=== PATIENT | female | born 1970 | race Caucasian/White ===

== ENCOUNTER 2016-10-21 07:46 | Emergency (ER) | payer OTHER ==
[~2016-10-21] VITALS: Ht 160 cm; Wt 122.0 kg
[2016-10-21] MEDS ORDERED: IBUP-1022 PO (08:05)
[2016-10-21] MEDS ORDERED: NORCO, ANEXSIA 5/325MG TABLET (HYDROcodone/ACETAMINOPHEN) PO ONE (08:45)
--- NOTE | 2016-10-21 09:33 | REP ---
Clinical: Trauma. Technique: AP, lateral, bilateral oblique and sunrise views right knee . Findings: The osseous structures and joint spaces are intact and normal. There is no evidence for acute fracture or dislocation. No joint effusion is appreciated. Surrounding soft tissues are unremarkable. No subcutaneous emphysema or radiodense foreign body. Impression: No acute fracture or dislocation. Signed by Pito Angulo MD 10/21/2016 09:25 A
[2016-10-21] MEDS ORDERED: MOBI4TAB PO (09:37)
[2016-10-21] MEDS ORDERED: NORCOTAB PO (09:37)
[2016-10-21 10:02] VITALS: BP 138/78
== END 2016-10-21 10:03 | disposition home or self-care (01) ==
LOC: M ED 07:46
DX: M25.561 Pain in right knee (principal); Z88.8 Allergy status to other drugs, medicaments and biological substances

== ENCOUNTER → 2018-10-27 | Outpatient (REF) | payer OTHER ==
[~2018-10-27] MED LIST: HYDR-3715 PO; IBUP-1022 PO; MOBI4TAB PO
[2018-10-27 14:29] LABS: CHLAMYDIA DNA AMPLIFICATION NEGATIVE (NEGATIVE); GC DNA AMPLIFICATION NEGATIVE (NEGATIVE)
== END ==
LOC: M SFHCWAGY 10:36
PROVIDERS: ATTEND Family Medicine
DX: N95.0 Postmenopausal bleeding (principal)

== ENCOUNTER → 2018-11-02 | Outpatient (CLI) | payer SELFPAY ==
--- NOTE | 2018-11-03 00:04 | REP ---
Clinical: Postmenopausal bleeding . Technique: Transabdominal pelvic ultrasound followed by transvaginal examination for better evaluation of the endometrium and adnexa. Findings: Bladder is unremarkable and measures 11.5 x 7.7 x 6.3 cm . Heterogeneous retroverted myomatous uterus measures 7.9 x 4.9 x 4.6 cm. Left anterior intramural fibroid measures 1.0 cm maximal diameter; posterior intramural fibroid measures 1.1 cm maximal diameter; left anterior intramural fibroid measures 0.5 cm maximal diameter. The endometrial complex measures 4.3 mm thickness. Incidental subcentimeter Nabothian cysts noted. Right ovary measures 3.7 x 1.8 x 2.8 cm with 1.6 cm paraovarian simple cyst ; Left ovary measures 2.9 x 2.0 x 3.3 cm with 1.7 cm cyst. No pelvic fluid or adnexal mass lesion. . Impression: 1. Heterogeneous myomatous retroverted uterus with few scattered fibroids measuring up to 1.1 cm maximal diameter. 2. Ovarian cysts.
== END ==
LOC: M WHC 14:57
PROVIDERS: ATTEND Family Medicine
DX: D25.9 Leiomyoma of uterus, unspecified (principal); N83.8 Other noninflammatory disorders of ovary, fallopian tube and broad ligament; N83.202 Unspecified ovarian cyst, left side

== ENCOUNTER → 2018-12-01 | Outpatient (REF) | payer OTHER | LOC: M SFHCWAGY 16:01 | PROVIDERS: ATTEND Family Medicine | DX: N95.0 Postmenopausal bleeding (principal) ==